=== PATIENT | female | born 1995 | race Caucasian/White ===

== ENCOUNTER 2016-04-14 13:08 | Emergency (ER) | payer MEDICAID ==
[~2016-04-14] VITALS: Ht 160 cm; Wt 102.1 kg
[2016-04-14 13:08] VITALS: BP 146/80; PULSE 143; RESP 26; TEMP 98.5; O2SAT 88
--- NOTE | 2016-04-14 13:08 | NUR ---
BROUGHT IMMEDIATELY BACK TO BED #[address] ELY CALLED TO BEDSIDE FOR LOW O2 SAT. REPORT GIVEN TO ALEKSANDRA
--- NOTE | 2016-04-14 13:10 | NUR ---
ER at bedside examining patient.
--- NOTE | 2016-04-14 13:12 | NUR ---
Patient presents to the emergency department with complaints of shortness of breath x 30min prior to arrival. Patient took inhaler but ineffective. pt wheezing and tripoding with accessory muscle use. will continue to monitor.
[2016-04-14] MEDS ORDERED: MAGNESIUM SULFATE 50 ML IV ONE (13:15)
[2016-04-14] MEDS ORDERED: methylPREDNISolone SOD SUCC/PF 62.5 MG/ML VIAL IVP ONE (13:15)
[2016-04-14] MEDS ORDERED: ALBUTEROL SULFATE 0.083% 2.5 MG/3 ML VIAL.NEB INH ONE ×2 (13:15→13:18)
[2016-04-14] MEDS ORDERED: IPRATROPIUM BROM 0.5 MG/2.5 ML VIAL.NEB (ATROVENT) INH ONE (13:18)
[2016-04-14 13:31] LABS: BASOPHILS # (AUTO) 0.2 K/uL (0.0-0.2); BASOPHILS % (AUTO) 1.6 % (0.0-2.0); EOSINOPHILS # (AUTO) 0.8 K/uL (0.0-0.4); EOSINOPHILS % (AUTO) 6.3 % (0.0-4.0); HEMATOCRIT 42.2 % (36-48); HEMOGLOBIN 13.5 g/dL (12.0-16.0); LYMPHOCYTES # (AUTO) 4.4 K/uL (1.0-5.5); MEAN CORPUSCULAR HEMOGLOBIN 24 pg (27-31); MEAN CORPUSCULAR HGB CONC 32 % (32-36); MEAN CORPUSCULAR VOLUME 76 fL (79.0-98.0); MONOCYTES # (AUTO) 0.7 K/uL (0.0-1.0); MONOCYTES % (AUTO) 5.5 % (1.7-9.3); NEUTROPHILS # (AUTO) 6.1 K/uL (1.8-7.7); NEUTROPHILS % (AUTO) 50.6 % (40.0-70.0); PLATELET COUNT (AUTO) 324 K/uL (130-430); RED BLOOD CELL COUNT(AUTO) 5.55 MIL/uL (4.2-6.2); RED CELL DISTRIBUTION WIDTH 16.3 % (9.0-15.0); WHITE BLOOD COUNT (AUTO) 12.2 K/uL (4.5-11.0)
[2016-04-14 13:34] LABS: CALCIUM 9.3 mg/dL (8.4-11.0); CREATININE 0.78 mg/dL (0.55-1.30); POTASSIUM 3.7 mmol/L (3.5-5.1)
--- NOTE | 2016-04-14 13:35 | NUR ---
care endorsed to josette graves
[2016-04-14 13:50] LABS: ALBUMIN 3.9 g/dL (3.4-4.8); TOTAL BILIRUBIN 0.6 mg/dL (0.0-1.0); TOTAL PROTEIN, SERUM 8.2 g/dL (6.4-8.3)
--- NOTE | 2016-04-14 14:10 | NUR ---
Patient sitting on bed in no acute distressmore calm and relaxed. Patient states she is feeling alot better.
--- NOTE | 2016-04-14 15:20 | NUR ---
Patient given written and verbal discharge instructions and verbalizes understanding. ER MD discussed with patient the results and treatment provided.Patient in stable condition. ID arm band removed. IV catheter removed intact and dressing applied, no active bleeding. Rx of prednisone given. Patient educated on pain management and to follow up with PMD. Pain Scale 0/10. Opportunity for questions provided and answered.
[2016-04-14 15:23] VITALS: BP 128/90; PULSE 110; RESP 16; TEMP 98.5; O2SAT 98
== END 2016-04-14 15:21 | disposition home or self-care (01) ==
LOC: SED 13:08
DX: J45.901 Unspecified asthma with (acute) exacerbation (principal)
CPT/HCPCS: 36415; 71010; 80053; 83605; 84484; 85025; 87040; 93005; 94640; 96365; 96375; 99285; J2930; J3475